=== PATIENT | female | born 2000 | race Caucasian/White ===

== ENCOUNTER 2019-07-31 19:15 | Emergency (ER) | payer OTHER ==
[~2019-07-31] VITALS: Ht 165.1 cm; Wt 65.9 kg
[2019-07-31] MEDS ORDERED: ACET1TAB55 PO (19:42)
[2019-07-31] MEDS ORDERED: MUCI600T31 PO (19:42)
[2019-07-31 20:03] VITALS: BP 148/92
[2019-07-31] MEDS ORDERED: AUGM875T28 PO (20:22)
[2019-07-31] MEDS ORDERED: AK-T0.3S OP (20:22)
== END 2019-07-31 20:30 | disposition home or self-care (01) ==
LOC: M ED 19:15
DX: H65.90 Unspecified nonsuppurative otitis media, unspecified ear (principal); J02.9 Acute pharyngitis, unspecified; H10.9 Unspecified conjunctivitis